=== PATIENT | female | born 1995 | race Two or more races ===

== ENCOUNTER 2018-02-28 23:12 | Emergency (ER) | payer OTHER, SELFPAY ==
[2018-02-28 23:12] VITALS: BP 93/67; PULSE 93; RESP 16; TEMP 36.8; O2SAT 99; BMI 23.9
[2018-03-01] MEDS: HYDROcodone Bitartrate/Apap 5/325 Tablet PO (00:11)
[2018-03-01 00:20] LABS: Color, Urine Yellow (Yellow); Glucose, Dipstick Normal (Normal); Ketone-Dipstick 15 mg/dl (Negative); Leukocyte Esterase-Dipstick 500 /ul (Negative); Nitrite-Dipstick Positive (Negative); Occult Blood-Urine 10 /ul (Negative); Protein-Dipstick 30 mg/dl (Negative); Urine Bilirubin Dipstick Negative (Negative); Urine Clarity Cloudy (Clear); Urine Urobilinogen Normal (Normal)
[2018-03-01 00:25] LABS: Bacteria 3+ /hpf (None Seen)
[2018-03-01 00:26] LABS: Mucous, Urine 1+ /hpf (<or=2+); Red Blood Cells-Urine 0-5 SEEN /hpf (0-5); Squamous Epithelial Cells - UA 0-5 SEEN /hpf (5-10); White Blood Cells 10-25 SEEN /hpf (0-5)
[2018-03-01 00:28] LABS: Internal QC Validated? YES +Cl - CLEAR BKGD; Pregnancy, Urine Negative Negative
--- NOTE | 2018-03-01 01:10 | ED.VISSUMM ---
- ER Visit Summary Date of Service: 03/01/18 Chief Complaint: Back pain History of Present Illness: The patient is a 22 F who has had 3 days of back pain. It is worse with bending. She states Advil is not helping at home. She denies dysuria or hematuria. She does have a history of kidney stones. She states that her pain is constant and it does not come and go. She states that she was bending over when this pain started. Physical Examination: Vital signs reviewed. HEENT exam unremarkable. Heart is regular rate and rhythm without murmurs. Lungs are clear to auscultation. Abdomen is soft and nontender. There is tenderness to palpation in the right paraspinal lumbar area. Extremities reveal no edema. Skin exam normal. Neurologic exam normal. Test Results: Urinalysis does reveal 10-25 white blood cells. Emergency Department Course and Treatment: The patient does have a UTI. I feel that her symptoms are likely muscular but she does have a UTI. Patient will be given Bactrim here and for home. I will give her naproxen for pain. She will follow-up with her PCP Treatment Plan: [] Disposition: Discharge Impression: Urinary tract infection, back pain, musculoskeletal This note was generated with [employer] dictation software. It may contain incorrect words, spelling, and punctuation that were not noted in review of the chart prior to signing ED Disposition - Plan for ED Patient: Disposition: Home or Assisted Living Chief Complaint: Flank Pain Instructions: ED UTI Cystitis Female Prescriptions: Naproxen [Naprosyn] 500 mg PO BID PRN #20 tab Smz/Tmp Ds [Bactrim Ds] 1 tab PO BID #10 tab Referrals: Care Physician,No Primary [Primary Care Provider] -
[2018-03-01] MEDS: Smz/Tmp Ds Tablet 1 TABLET PO (01:49)
[2018-03-01 01:51] VITALS: BP 94/58; PULSE 72; RESP 16; O2SAT 96
== END 2018-03-01 01:52 | disposition home or self-care (01) ==
PROVIDERS: Emergency Provider Emergency Medicine
DX: N39.0 Urinary tract infection, site not specified (principal); M54.5 Low back pain; Z87.442 Personal history of urinary calculi
CPT/HCPCS: 81001; 81025; 99283

== ENCOUNTER → 2022-04-16 | Outpatient (CLI) | payer OTHER, SELFPAY ==
[2022-04-18 21:07] LABS: Chlamydia By Nucleic Acid AMP Negative (Negative)
[2022-04-20 10:21] LABS: Gonococcus By Nucleic Acid AMP Negative (Negative)
== END | disposition home or self-care (01) ==
LOC: LABSPEC 12:24
PROVIDERS: Visit Provider Obstetrics & Gynecology
DX: Z11.3 Encounter for screening for infections with a predominantly sexual mode of transmission (principal)
CPT/HCPCS: 87491; 87591